=== PATIENT | female | born 1955 | race Caucasian/White ===

== ENCOUNTER 2018-11-11 05:45 | Observation (INO) | payer OTHER ==
[~2018-11-11 05:45] MED LIST: Buffered Lidocaine 1% SYRIN* 1 ML/SYRINGE INTRADERM ONE
[2018-11-11] MEDS ORDERED: Famotidine IV* 10 MG/ML 2 ML (20 mg) IV ONE (06:00)
[2018-11-11] MEDS ORDERED: Lactated Ringers 1000 ML Bag* 1,000 ML IV SCH ×2 (06:00→12:00)
[2018-11-11] MEDS ORDERED: Famotidine IV* 10 MG/ML 2 ML (20 mg) ONE (06:23)
[2018-11-11] MEDS ORDERED: ceFAZolin 2 GM PREMIX in ORs 2 GM/50 ML BAG IVPB ONE (06:23)
[2018-11-11] MEDS ORDERED: Lidocaine 1% MPF wEPI 200,000* 30 ML SDV ONE (06:35)
[2018-11-11] MEDS ORDERED: Thrombin 5,000 UNITS* 1 APPLIC KIT - topical use - TOPICAL ONE (06:35)
[2018-11-11] MEDS ORDERED: Bacitracin IV* 50,000 UNITS INJ ONE (06:35)
[2018-11-11] MEDS ORDERED: fentaNYL* 50 MCG/ML 2 ML VIAL (100 MCG VIAL) ONE ×3 (07:28→09:21)
[2018-11-11] MEDS ORDERED: Midazolam* 1 MG/ML 5 ML VIAL (5 MG) ONE (07:28)
[2018-11-11] MEDS ORDERED: Propofol* 500 MG/50 ML BTL ONE ×2 (08:34→10:24)
[2018-11-11] MEDS ORDERED: Phenylephrine IV* 40 MCG/ML 10 ML SYRINGE ONE (08:34)
[2018-11-11] MEDS ORDERED: Propofol* 10 MG/ML 20 ML BTL ONE ×2 (08:34→10:23)
[2018-11-11] MEDS ORDERED: Succinylcholine* 20 MG/ML 10 ML VIAL ONE (08:34)
[2018-11-11] MEDS ORDERED: EPHEDrine (Pressors)* 50 MG/ML VIAL ONE (08:34)
[2018-11-11] MEDS ORDERED: Ondansetron INJ* 2 MG/ML VIAL ONE (08:34)
[2018-11-11] MEDS ORDERED: Dexamethasone IV* 4 MG/ML 1 ML (4 MG) ONE (08:34)
[2018-11-11] MEDS ORDERED: DiMENhydriNATE IV* 50 MG/ML VIAL ONE (08:34)
[2018-11-11] MEDS ORDERED: Lidocaine 2% PF * 5 ML VIAL ONE (08:34)
[2018-11-11] MEDS ORDERED: Rocuronium* 10 MG/ML VIAL ONE (09:05)
[2018-11-11] MEDS ORDERED: DiMENhydriNATE IV* 50 MG/ML VIAL IV PUSH PRN (09:55)
[2018-11-11] MEDS ORDERED: Levalbuterol 0.63MG/3ML NEB* UNIT OF USE INH PRN (09:55)
[2018-11-11] MEDS ORDERED: Naloxone* 0.4 MG/ML 1 ML VIAL IV PRN (09:55)
[2018-11-11] MEDS ORDERED: Acetaminophen IV 1GM/100ML * 1,000 MG/100 ML VIAL IVPB ONE (09:55)
[2018-11-11] MEDS ORDERED: Magnesium Hydroxide LIQ* 30 ML UDC PO PRN (11:06)
[2018-11-11] MEDS ORDERED: Ondansetron INJ* 2 MG/ML VIAL IV PRN (11:06)
[2018-11-11] MEDS ORDERED: Zolpidem TAB* 10 MG PO PRN (11:12)
[2018-11-11] MEDS ORDERED: Nicotine Inhaler* 10 MG AMP INH PRN (11:13)
[2018-11-11] MEDS ORDERED: Acetaminophen IV 1GM/100ML * 100 ML ONE (11:22)
[2018-11-11] MEDS ORDERED: Benzocaine/Menthol LOZ* 1 LOZENGE MT PRN (11:42)
[2018-11-11] MEDS ORDERED: HYDROmorphone INJ1* 1 MG/ML SYRINGE ONE (11:47)
[2018-11-11] MEDS: HYDROmorphone INJ1* 1 MG/ML SYRINGE IV PRN ×5 (11:50→12:17)
[2018-11-11] MEDS: Nicotine PATCH 21 MG/24 HR* PATCH TRANSDERM SCH (13:13)
[2018-11-11] MEDS: HYDROcodone/ACETAMIN 5-325 MG* 1 TAB PO PRN ×3 (13:14→22:24)
[2018-11-11] MEDS ORDERED: Mouth Piece, Nicotine* 1 EACH CARTRIDGE INH PRN (13:19)
--- NOTE | 2018-11-11 14:36 | OP ---
DATE OF SURGERY: 11/11/18 - ROOM #333 DATE OF : 59 SURGEON: Dr. Shubham Prakash. ENERGY CONSERVATION DIRECTOR: SCOTTY Montilla. The case was done with the assistance of surgical PA because of the complexity of the case. ANESTHESIA: General. PRE-OP DIAGNOSIS: Degenerative disk disease. POST-OP DIAGNOSIS: Degenerative disk disease. OPERATIVE PROCEDURE: The patient underwent anterior cervical diskectomy and fusion at C4-5 and C5-6 level with PEEK interbody cages, autologous local bone graft, and DBX and plate with screws, with intraoperative monitoring. ESTIMATED BLOOD LOSS: 30 cc. COMPLICATIONS: None. SUMMARY: The patient is a very pleasant 63-year-old female with complaints of neck pain radiating mostly to the right upper extremity with MRI findings consistent with degenerative disk disease, especially at C4-5 and C5-6. The patient did not feel improvement with conservative treatment modalities and she was offered the option of surgical intervention. After explaining the expectations, limitations, possible complications of the procedure to the patient and her son with complications including, but not limited to, bleeding, infections, risk of injury to adjacent structures, paralysis, , need for additional procedure, anesthesia risks, stroke, blindness, cancer, instability, hardware failure, adjacent level disease, pseudoarthrosis, recurrent laryngeal nerve injuries, spinal fluid leak, Duncan syndrome, need for tracheostomy or gastrostomy, prolonged ICU stay, injury of the blood vessels, scar formation, anesthesia risks, the patient was agreeable to proceed with surgery and informed consent was obtained. The patient understood that her condition may not improve, in fact may get worse after the surgery and that she may need to have additional procedures in the future. She also understood that operative plan may be modified according to intraoperative findings and conditions and the case may be abandoned or done in more than one stages. DESCRIPTION OF PROCEDURE: The patient was brought to the operating room and was placed under general anesthesia by the anesthesia team. She was carefully positioned supine on operative table and shoulders were elevated with a shoulder bump. All bony prominences were meticulously padded. The skin was prepped and draped in the standard fashion, and after appropriate surgical pause and patient identification, a small right transverse incision over approximately C5 vertebral body was marked on the skin. The skin was infiltrated with local anesthetic and #10 surgical blade was used to incise the skin. The incision was carried down with Bovie cautery and skin was undermined with tenotomy scissors. Self-retaining retractors were introduced into the field and the platysma was gently elevated and divided with sharp dissection. The platysma was also undermined and the plane between the medial border of the sternocleidomastoid and medial structures were gently developed with sharp and blunt dissection. The prevertebral fascia was identified, and after gently dividing, the anterior part of the spine was exposed. The disk spaces were identified and intraoperative fluoroscopic imaging confirmed the appropriate surgical level. [place] pins were then introduced into the field and self- retaining retractors were introduced. A standard diskectomy was performed at C5 -6 level first in the standard fashion under microscopic magnification. The annulus fibrosus was incised with a #15 surgical blade. Then diskectomy was carried out with the use of pituitary rongeurs, Kerrison punches, high speed drill, and curettes. Locally harvested bone graft during the preparation of disk space was saved for the arthrodesis part of the procedure. The posterior longitudinal ligament was gently divided with #1 Kerrison and extensive foraminotomies were performed in both sides. After appropriate sizing of the disk space, an 8 mm PEEK interbody spaced filled with locally harvested bone graft and DBX putty was inserted. The [place] pins were removed and the self- retaining retractors were repositioned. Attention was brought not to have significant retraction tension during the exposure. The procedure was then repeated for the C4-5 disk space which was quite collapsed. A 7 mm PEEK interbody cage from [employer] was also inserted in these levels. [place] pins were removed and Zevo [employer] plate was placed and secured with temporary pins. Fluoroscopic imaging confirmed excellent placement of all hardware and we used handheld drill and screw drivers. Titanium screws were used to secure the plate. Intraoperative fluoroscopic imaging confirmed excellent placement of all hardware. The locking mechanism was also engaged. After copious irrigation, meticulous hemostasis, and meticulous inspection, the self- retaining retractors were removed from the field and a Michael drain was inserted through separate stab wound incision. After copious irrigation, meticulous hemostasis, and meticulous inspection, the wound was closed by layers with 2-0 interrupted sutures to approximate the platysma and 2-0 interrupted sutures to approximate the subcutaneous tissue. The skin was then covered with Dermabond. At the end of the procedure, all counts were reported to be correct. The patient remained hemodynamically stable throughout the case. Intraoperative electro-physiological monitoring was stable throughout the procedure. The patient was then extubated and was transferred to recovery in excellent condition. The case was done with assistance of surgical PA because of the complexity of the case. [id number]/[facility] #: [id number] [place]ETTE
[2018-11-11] MEDS ORDERED: [UNRECOGNIZED DRUG - OTHER] INH SCH (18:00)
[2018-11-11] MEDS ORDERED: Gabapentin CAP(*) 100 MG PO SCH (21:00)
[2018-11-11] MEDS ORDERED: Nicotine Patch Removal NOTE PATCH OFF SCH (21:00)
[2018-11-12] MEDS ORDERED: Levothyroxine TAB* 100 MCG TAB PO SCH (06:00)
[2018-11-12] MEDS: HYDROcodone/ACETAMIN 5-325 MG* 1 TAB PO PRN ×2 (06:39→12:57)
--- NOTE | 2018-11-12 07:57 | PN ---
Progress Note - Progress Note Date of Service: 11/12/18 SOAP: Subjective: [S/p ACD F C4-5, C5-6, POD #1 RUE pain and tingling improved Mildly decreased ROM RUE Ambulating with assistance of a walker Pain well controlled with PO meds Eating and drinking well ] Objective: [ Vital Signs: Temp Pulse Resp BP Pulse Ox 97.7 F 73 18 118/49 94 11/12/18 04:01 11/12/18 04:01 11/12/18 06:40 11/12/18 04:01 11/12/18 04:01 General: Sitting up in bed, comfortable. MJ collar in place Neuro: Motor and sensory intact bilateral upper extremities. Mild RUE decreased ROM. Incision: Intact, no swelling. Drain dc this morning. Wound drain output 11/11/18 11/11/18 11/12/18 17:10 23:32 06:00 Output, RUBENS #1 15 10 20 ] Assessment: [Satisfactory post op] Plan: [1. Discharge home today with walker 2. Xray cervical spine this morning 3. Discharge instructions discussed]
[2018-11-12] MEDS: Nicotine PATCH 21 MG/24 HR* PATCH TRANSDERM SCH (08:36)
[2018-11-12] MEDS ORDERED: Ezetimibe TAB* 10 MG PO SCH (09:00)
[2018-11-12] MEDS ORDERED: FLUoxetine CAP* 10 MG PO SCH (09:00)
[2018-11-12] MEDS ORDERED: Cyclobenzaprine TAB* 10 MG PO SCH (09:00)
[2018-11-12] MEDS ORDERED: CMCS:Pravastatin (NF) 20 MG TAB PO SCH (09:00)
[2018-11-12 12:23] VITALS: BP 130/63
== END 2018-11-12 13:10 | disposition home or self-care (01) ==
LOC: OR 05:45 → SSU 11:06
PROVIDERS: ADMIT Neurological Surgery; ATTEND Neurological Surgery
PROC: 0RG2070 Fusion of 2 or more Cervical Vertebral Joints with Autologous Tissue Substitute, Anterior Approach, Anterior Column, Open Approach (ICD-10-PCS; 2018-11-11)
PROC: 0RB30ZZ Excision of Cervical Vertebral Disc, Open Approach (ICD-10-PCS; principal; 2018-11-11 07:30)
DX: M47.12 Other spondylosis with myelopathy, cervical region (principal); M48.02 Spinal stenosis, cervical region; M54.2 Cervicalgia; E78.2 Mixed hyperlipidemia; E03.8 Other specified hypothyroidism; M50.321 Other cervical disc degeneration at C4-C5 level; M50.322 Other cervical disc degeneration at C5-C6 level; M79.7 Fibromyalgia
CPT/HCPCS: 72040; 76000; 96374; 96375; 96376; A9270-GY; C1713; C1776; G0378; J0330; J0690; J1100; J1170; J1240; J2001; J2250; J2405; J2704; J3010